=== PATIENT | female | born 1970 | race Caucasian/White ===

== ENCOUNTER 2024-08-19 00:46 | Inpatient (IN) | payer OTHER ==
[2024-08-19] MEDS ORDERED: IBUPROFEN 600 MG TAB PO PRN (01:02)
[2024-08-19] MEDS ORDERED: HALOPERIDOL LACTATE 5 MG/ML 1 ML VIAL IM PRN (01:02)
[2024-08-19] MEDS ORDERED: LORazepam 2 MG/ML INJ IM PRN (01:02)
[2024-08-19] MEDS ORDERED: MAGNESIUM HYDROXIDE 2,400 MG/30 ML CUP PO PRN (01:02)
[2024-08-19] MEDS ORDERED: ACETAMINOPHEN TAB 325 MG TAB PO PRN (01:02)
[2024-08-19] MEDS ORDERED: haloperidoL 5 MG TAB PO PRN (01:02)
[2024-08-19] MEDS ORDERED: LORazepam 1 MG TAB PO PRN (12:31)
[2024-08-19] MEDS: FOLIC ACID 1 MG TAB PO SCH (13:37)
[2024-08-19] MEDS: THIAMINE 100 MG TAB PO SCH (13:37)
[2024-08-19] MEDS: MULTIVITAMINS, THERA 1 EACH TAB PO SCH (13:37)
--- NOTE | 2024-08-20 03:12 | P.CONS ---
History of Present Illness - Reason for Consult Consult date: 08/20/24 - History of Present Illness The patient is a 53-year-old female who was transferred from [facility] with the patient had been admitted after an intentional overdose for depression and suicidal ideation. The patient was seen in the mental health unit. She reported that she had tried to commit suicide but overdosing on Wellbutrin, Xanax, BuSpar, and sertraline. She reports struggling with thoughts of depression along with her anxiety. She reports a chronic history of degenerative disc disease and reports smoking a pack of cigarettes daily. She also reports drinking a few beers every day with no hard liquor use. Denied any illicit substance use. Denied experiencing chest discomfort, shortness of breath, fever, chills, cough, nausea, vomiting, abdominal pain, diarrhea. Review of systems: Pertinent positives and negatives as discussed in HPI, a complete review of systems was performed and all other systems are negative. Physical examination: General: non toxic, no distress, appears at stated age, normal weight Derm: no unusual rashes/lesions, no unusual ecchymoses, warm, dry Head: atraumatic, normocephalic, symmetric Eyes: EOMI, no lid lag, anicteric sclera ENT: Nose and ears atraumatic, no thrush, no pharyngeal erythema Neck: trachea midline, supple Mouth: no lip lesion, mucus membranes moist Cardiovascular: S1S2 reg, no murmur, no edema Lungs: CTA bilateral, no rhonchi, no rales , no accessory muscle use Abdominal: soft, nontender to palpation, no guarding Ext: no gross muscle atrophy, no contractures, Neuro: No gross focal neuro deficits noted Psych: Alert, oriented, appropriate affect Assessment: Depression and suicidal ideation Tobacco abuse Plan: Defer management of depression and suicidal ideation to the primary psychiatry service Advised on importance of cessation from tobacco use Thank you for allowing us to participate in the care of this patient. We will follow peripherally. Do not hesitate to contact us with questions. Someone can be reached from the [facility] hospitalist group at all hours of the day at [phone]. Past Medical History Past Medical History: No Reported History, Musculoskeletal Disorder Additional Past Medical History / Comment(s): DDD History of Any Multi-Drug Resistant Organisms: None Reported Past Surgical History: Breast Surgery, Section, Cholecystectomy Additional Past Surgical History / Comment(s): D & C, removal of cyst and polyp on ovaries Past Anesthesia/Blood Transfusion Reactions: No Reported Reaction Past Psychological History: No Psychological Hx Reported Smoking Status: Current every day smoker Past Alcohol Use History: Daily Additional Past Alcohol Use History / Comment(s): 3-4 drinks/day Past Drug Use History: None Reported - Past Family History Mother Family Medical History: COPD Medications and Allergies Home Medications Medication Instructions Recorded Confirmed Type No Known Home Medications 08/19/24 08/19/24 History Allergies Allergy/AdvReac Type Severity Reaction Status Date / Time No Known Allergies Allergy Verified 08/19/24 12:07 Physical Exam Vitals: Vital Signs Temp Pulse Resp BP Pulse Ox 08/19/24 12:17 98.6 F 87 18 149/88 94 L Intake and Output 08/19/24 08/19/24 08/20/24 14:59 22:59 06:59 Other: Weight 66.224 kg
[2024-08-20 08:20] LABS: Basophils % (A) 0 %; Eosinophils # (A) 0.1 k/uL (0-0.7); Eosinophils % (A) 1 %; HCT 47.2 % (34.0-46.0); HGB 15.8 gm/dL (11.4-16.0); Lymphocytes # (A) 1.5 k/uL (1.0-4.8); Lymphocytes % (A) 17 %; MCH 33.7 pg (25.0-35.0); MCHC 33.5 g/dL (31.0-37.0); MCV 100.7 fL (80.0-100.0); Mean Platelet Volume 9.7; Monocytes # (A) 0.4 k/uL (0-1.0); Monocytes % (A) 5 %; Neutrophils # (A) 6.7 k/uL (1.3-7.7); Neutrophils % (A) 75 %; Platelet Count 230 k/uL (150-450); RBC 4.69 m/uL (3.80-5.40); RDW 12.9 % (11.5-15.5); WBC 8.9 k/uL (3.8-10.6)
[2024-08-20 08:35] LABS: ALT 39 U/L (4-34); African American GFR (CKD) >90 (>60 ml/min/1.73 sqM); Albumin 4.7 g/dL (3.5-5.0); Anion Gap 14 mmol/L; Blood Urea Nitrogen 11 mg/dL (7-17); Calcium 9.7 mg/dL (8.4-10.2); Carbon Dioxide 20 mmol/L (22-30); Chloride 103 mmol/L (98-107); Glucose 108 mg/dL (74-99); Non-African American GFR(CKD) 85 (>60 ml/min/1.73 sqM); Sodium 137 mmol/L (137-145); Total Bilirubin 1.1 mg/dL (0.2-1.3); Total Protein 7.5 g/dL (6.3-8.2)
[2024-08-20 08:39] LABS: AST 46 U/L (14-36); Alkaline Phosphatase 66 U/L (38-126); Potassium 4.2 mmol/L (3.5-5.1)
[2024-08-20] MEDS: LORazepam 1 MG TAB PO PRN (09:31)
[2024-08-20] MEDS: buPROPion XL 150 MG TAB.ER.24H PO SCH (09:31)
[2024-08-20] MEDS: FAMOTIDINE 20 MG TAB PO SCH (09:32)
--- NOTE | 2024-08-20 15:41 | P.HP ---
Psychiatric H&P - . H&P Date: 08/20/24 History & Physical: Allergies Allergy/AdvReac Type Severity Reaction Status Date / Time No Known Allergies Allergy Verified 08/19/24 12:07 Vital Signs Temp 98.6 F 08/19/24 12:17 Pulse 87 08/19/24 12:17 Resp 18 08/19/24 12:17 BP 149/88 08/19/24 12:17 Pulse Ox 94 L 08/19/24 12:17 FiO2 Intake & Output 08/18/24 08/19/24 08/19/24 18:59 06:59 18:59 Weight 65.8 kg 66.224 kg Dictation was produced using [employer] dictation software. Please excuse any grammatical, word or spelling errors. IDENTIFYING DATA: Patient is a 53 years old female with past psych history of depression, anxiety who was initially presented to [facility] and was transferred and admitted to the hospital after suicide attempt via overdose on her home psychiatric medication. HPI: Patient is a 53 years old female presented after suicidal attempt 08/17, noon, she took a bunch of her medication that she was previously on. He was not sure how much she took. She reported that she stopped all of her medication 2 months ago. She woke up with tremors unable to focus, has some ocular clonus lower extremity rigidity nausea, shortness of breath not feeling right. In the ED she was denying that she wanted to and denied any plan for suicide. She has been depressed, isolated, lost her car, has been having family stress with no permanent housing. Labs reviewed including ECG, sinus rhythm, with probable left atrial enlargement, HR 85, QTc 483. UDS positive for amphetamine and benzodiazepine. Alcohol level within normal limit, acetaminophen, salicylate within normal limit. CMP showed creatinine at 1.17 otherwise unremarkable, CBC showed WBC BC 16.3 otherwise unremarkable. Upon evaluation in the unit the patient states that she has been in a lot of stress lately including difficulty with her housing, she lost her job, and her car. States that she had some impulsive behavior when she felt overwhelmed by her financial stresses and she took a bunch of her medication, went to sleep and when she woke up she had some dizziness, did not feel well, she asked her neighbor to bring her to the ED. States that she was homeless prior to going to stay with a friend. Reported that she felt very bad and overdosed on her old medication. Reported that she has been down, sad, depressed, hopeless at times, reported her sleep to be on and off lately, she admitted to poor appetite. She denied any previous suicidal attempt in the past. She denied any current suicidal or homicidal thoughts or behavior and reported that she regretted what she did, and reported that she is glad she still alive. She denied any current manic or hypomanic symptoms, denied any flights of ideas, racing thoughts, increase in goal-directed behavior. She denied any auditory or visual hallucination, paranoia or delusion, she admitted to using alcohol on and off and reported that using few drinks every night, smoking 1 pack/day. She denied any other substance. PAST PSYCHIATRIC HISTORY: Inpatient hospitalization: Denied any previous hospitalization Outpatient: had a [facility] psychiatrist last seen in March Psychotropic medication: Buspirone 15 mg d, Wellbutrin XL 450 mg, Zoloft 100 mg, trazodone 150 mg (did not take for 2 months) Previous psychotropic medication: so many, could not remember Previous psychiatric diagnosis: depression, anxiety Suicidal attempts: pt denies PMH: as per ER note Past Medical History: No Reported History, Musculoskeletal Disorder Additional Past Medical History / Comment(s): DDD History of Any Multi-Drug Resistant Organisms: None Reported Past Surgical History: Breast Surgery, Section, Cholecystectomy Additional Past Surgical History / Comment(s): D & C, removal of cyst and polyp on ovaries Past Anesthesia/Blood Transfusion Reactions: No Reported Reaction Past Psychological History: No Psychological Hx Reported Smoking Status: Current every day smoker Past Alcohol Use History: Daily Additional Past Alcohol Use History / Comment(s): 3-4 drinks/day Past Drug Use History: None Reported ALLERGIES: as per EMR CHEMICAL DEPENDENCY HISTORY: as per HPI Tobacco: 1 pack/day for 35 years Alcohol: 3-4 beers per day, 28 standard drinks of alcohol, 28 cans of beer per week Cannabis: pt denies Illicit substance: pt denies Coffee: 3 cups per day FAMILY PSYCHIATRIC/SUBSTANCE USE HISTORY: pt reported that her daughter has bipolar disorder SOCIAL HISTORY: Patient was born in [place] and raised in [place]. Unemployed since last yr, used to work as a dental operating room assistant for 35 yrs. for 6 yrs, was for 20 yrs. Has 2 children 18yo male, and 30 yo female, has on and off connection with them, 1 grand child. Finished HS, dental operating room assistant certificate. Currently staying with a friend. MENTAL STATUS EXAM: General Appearance: Patient appears to be stated age is alert, directable, and attempts to cooperate. Patient appears to have fair hygiene and grooming. Behavior: Patient is seated without any agitated behavior. Speech: Patient's speech is fluent and nonpressured. Mood/Affect: Patient reports their mood is depressed, affect is congruent and constricted. Suicidality/Homicidality: Patient denies having any homicidal ideation intent or plan. Denies any suicidal ideations intent or plan Perceptions: Patient denies any visual hallucinations and denies any auditory hallucinations Though content/process: There is no evidence of any delusional thought content and thought process is linear and goal-directed. Memory and concentration: AOX3, grossly intact for the purposes of this session. Can spell "WORLD" backwards Judgment and insight: poor STRENGTHS/WEAKNESSES: strength is that patient is resilient. Weakness is that patient has poor judgment and is impulsive INTELLECT: [average] IMPRESSIONS: -Major depressive disorder, recurrent, severe with suicidal ideation -Generalized anxiety disorder -Alcohol use disorder PLAN: -Patient is admitted under voluntary status to MHU for stabilization of psychiatric symptoms and safety. -Medications : Start Wellbutrin XL 150 mg p.o. daily Start trazodone 50 mg p.o. at bedtime -Ativan and Haldol PRN for agitation/aggression -Started thiamine, MVM for etoh use -CIWA protocol with Ativan PRN for ETOH withdrawal.][scheduled Librium for alcohol withdrawal with plan to taper. -Patient was counselled on substance abuse and desired to cut back on use -Will offer patient subtance use rehab -Patient was informed of the risks, benefits and side effects of the medication and patient verbally consented to taking the medications. Patient signed med consent form and was placed in chart. -Internal Medicine consult to perform medical evaluation and physical. -NRT - nicotine patch -SW on board for discharge planning. Encourage patient to participate in groups to work on coping skills.
[2024-08-20 16:04] LABS: Chol/HDL Ratio 3.62 Ratio; LDL Cholesterol,Calculated 145.7 mg/dL (0.0-131.0)
[2024-08-20] MEDS: MAG HYDROX/AL HYDROX/SIMETH 355 ML BOTTLE PO PRN (21:33)
[2024-08-20] MEDS: traZODone HCL 50 MG TAB PO SCH (21:33)
[2024-08-21 11:16] VITALS: BMI 22.1
--- NOTE | 2024-08-21 15:26 | P.PN ---
Progress Note - Text Progress Note Date: 08/21/24 Dictation was produced using [employer] dictation software. Please excuse any grammatical, word or spelling errors. Interval history: She states that she has stomach issues for a week, and she has not being able to eat, she states that she was feeling nauseous, she states that she will try light food today. Mood is "fine". Reported that depression and anxiety are at the moderate side. She denied any current suicidal or homicidal thoughts or behaviors, denied any auditory or visual hallucination, she reported that she totally feels bad about what she did. She states that she still having some withdrawal symptoms and reported that may be related to her upset stomach however reported that she feels that she is getting better. She admitted to good sleep last night, she reported that she is getting along well with everyone in the unit, that she has been taking her medication, she denied any current side effects. She has no other concern at this time. MENTAL STATUS EXAM: General Appearance: Patient appears to be stated age is alert, directable, and attempts to cooperate. Patient appears to have fair hygiene and grooming. Behavior: Patient is seated without any agitated behavior. Speech: Patient's speech is fluent and nonpressured. Mood/Affect: Patient reports their mood is fine, affect is congruent and constricted. Suicidality/Homicidality: Patient denies having any homicidal ideation intent or plan. Denies any suicidal ideations intent or plan however he had suicidal attempt prior to this hospitalization via overdose on her home medication. Perceptions: Patient denies any visual hallucinations and denies any auditory hallucinations Though content/process: There is no evidence of any delusional thought content and thought process is linear and goal-directed. Memory and concentration: AOX3, grossly intact for the purposes of this session. Can spell "WORLD" backwards Judgment and insight: Improving IMPRESSIONS: -Major depressive disorder, recurrent, severe with suicidal ideation -Generalized anxiety disorder -Alcohol use disorder PLAN: -Patient is admitted under voluntary status to MHU for stabilization of psychiatric symptoms and safety. -Medications : Increase Wellbutrin XL to 300 mg p.o. daily Continue trazodone 50 mg p.o. at bedtime -Ativan and Haldol PRN for agitation/aggression -Started thiamine, MVM for etoh use -CIWA protocol with Ativan PRN for ETOH withdrawal.][scheduled Librium for alcohol withdrawal with plan to taper. -Patient was counselled on substance abuse and desired to cut back on use -Will offer patient subtance use rehab -Patient was informed of the risks, benefits and side effects of the medication and patient verbally consented to taking the medications. Patient signed med consent form and was placed in chart. -Internal Medicine consult to perform medical evaluation and physical. -NRT - nicotine patch -SW on board for discharge planning. Encourage patient to participate in groups to work on coping skills.
[2024-08-22] MEDS: buPROPion XL 300 MG TAB.ER.24H PO SCH (09:35)
[2024-08-22] MEDS: LORazepam 1 MG TAB PO PRN (09:36)
--- NOTE | 2024-08-22 11:32 | P.PN ---
Progress Note - Text Progress Note Date: 08/22/24 Dictation was produced using [employer] dictation software. Please excuse any grammatical, word or spelling errors. Interval history: Pt states that she still having stomach issues, states that she has not been able to eat well because of the upset stomach. She admitted to good sleep, reported increase in her depression and anxiety, since she does not know what she will do when she leave from here, she was emotional and cried multiple times during the interview. She denied any current suicidal or homicidal thoughts or behaviours or AVH, however she is guarded and minimizing her symptoms. Reported that she get along well with everyone in the unit. She states that she did not attended groups, pt was encouraged to do so. She states that she misses her kids, 18 yo son, and 30 yo daughter who is homeless with her boyfriend, and reported that they just got out of [facility]. States that looking back about her suicidal attempt she totally regret what she did, reported that she is just going through a lot. She states that she has been taking her meds, denied any side effects. She has no other concern at this time. MENTAL STATUS EXAM: General Appearance: Patient appears to be stated age is alert, directable, and attempts to cooperate. Patient appears to have fair hygiene and grooming. Behavior: Patient is seated without any agitated behavior. Speech: Patient's speech is fluent and nonpressured. Mood/Affect: Patient reports their mood is fine, affect is congruent and constricted. Suicidality/Homicidality: Patient denies having any homicidal ideation intent or plan. Denies any suicidal ideations intent or plan however he had suicidal attempt prior to this hospitalization via overdose on her home medication. Perceptions: Patient denies any visual hallucinations and denies any auditory hallucinations Though content/process: There is no evidence of any delusional thought content and thought process is linear and goal-directed. Memory and concentration: AOX3, grossly intact for the purposes of this session. Can spell "WORLD" backwards Judgment and insight: Improving IMPRESSIONS: Patient is a 53 years old female with past psych history of depression, anxiety and alcohol use who was initially presented to [facility] and was transferred and admitted to the hospital after suicide attempt via overdose on her home psychiatric medication. On assessment today the pt continue to endorse high depression and anxiety mainly related to her current situation. She was emotional, and cried during the interview. She denied any SI/HI or AVH. She has a limited insight into her mental illness, and is minimizing her symptoms. Will continue with her medications with a plan to start Buspar 5 mg po bid to address anxiety, may consider titrating the dose. Will continue with CIWA protocol for alcohol withdrawal. Given the recent suicidal attempt pt will continue to meet criteria for inpatient hospitalization to work over her medication titration and to stabilize her mood. Will continue to monitor the pt while in the unit and make medication adjustment as needed. -Major depressive disorder, recurrent, severe with suicidal ideation -Generalized anxiety disorder -Alcohol use disorder PLAN: -Patient is admitted under voluntary status to MHU for stabilization of psychiatric symptoms and safety. -Medications : Continue Wellbutrin XL 300 mg p.o. daily Continue trazodone 50 mg p.o. at bedtime Start Buspar 5 mg po bid -Ativan and Haldol PRN for agitation/aggression -Started thiamine, MVM for etoh use -CIWA protocol with Ativan PRN for ETOH withdrawal. -Patient was counselled on substance abuse and desired to cut back on use -Will offer patient subtance use rehab -Patient was informed of the risks, benefits and side effects of the medication and patient verbally consented to taking the medications. Patient signed med consent form and was placed in chart. -Internal Medicine consult to perform medical evaluation and physical. -NRT - nicotine patch -SW on board for discharge planning. Encourage patient to participate in groups to work on coping skills.
[2024-08-22] MEDS: busPIRone HCl 5 MG TAB PO SCH (12:45)
[2024-08-22] MEDS: BENZOCAINE/MENTHOL LOZENG 1 EACH LOZENGE MUCOUS MEM PRN (12:46)
[2024-08-23 09:05] VITALS: RESP 16
[2024-08-23] MEDS ORDERED: ONDANSETRON 4 MG TAB PO PRN (11:10)
--- NOTE | 2024-08-23 11:10 | P.PN ---
Progress Note - Text Progress Note Date: 08/23/24 Interval history: Patient was seen sitting in the lounge today and was directable and agreeable to speak with commercial real estate underwriter. She claims that she is doing a bit better today with regards to her mood and anxiety. States that she is trying to go to some groups. Did claim that she did have a bit of an upset stomach and mild nausea, we spoke about Zofran as needed but she is okay to try. Claims that she slept fairly last night, has a fair appetite. At this time patient denies any suicidal or homicidal ideations intent or plan. Denies any Auditory or visual hallucinations. Patient denies any side effects from the medications and has been compliant with meds. Mental status exam: General Appearance: Patient appears to be stated age is alert, directable, and cooperative. Behavior: No agitated behavior. Patient is calm and directable Speech: Patient's speech is fluent and nonpressured. Mood/Affect: Mood is improving mildly, mild anxiety, affect is congruent and constricted. Suicidality/Homicidality: Patient denies having any suicidal or homicidal ideation intent or plan. Perceptions: Patient denies any auditory or visual hallucinations. Though content/process: There is no evidence of any delusional thought content and thought process is linear and goal-directed. Memory and concentration: AOX3, grossly intact for the purposes of this session Judgment and insight: improving mildly Assessment/Plan: Continue with current diagnosis. Patient continues to meet criteria for inpatient psychiatric admission for symptom stabilization and safety. Patient will be maintained on current psychotropic medication regimen. Added Zofran as needed for nausea. Monitor for medication compliance and for any psychotropic medication side effects. Will continue to monitor ongoing response to treatment. Encouraged participation in milieu.
[2024-08-24 09:20] VITALS: TEMP 97.1
--- NOTE | 2024-08-24 12:02 | P.PN ---
Progress Note - Text Progress Note Date: 08/24/24 Interval history: Patient was seen sitting in the lounge today and was directable and agreeable to speak with machine sign writer. Patient has been interacting with others on the unit. She claims that she is doing a bit better today, claims that her mood and anxiety been improving. Claims that her upset stomach and nausea have improved since yesterday, states that she did not need to take any Zofran. Claims that she slept fairly last night, has a fair appetite. At this time patient denies any suicidal or homicidal ideations intent or plan. Denies any Auditory or visual hallucinations. Patient denies any side effects from the medications and has been compliant with meds. Mental status exam: General Appearance: Patient appears to be stated age is alert, directable, and cooperative. Behavior: No agitated behavior. Patient is calm and directable, fairly pleasant today, cooperative. Speech: Patient's speech is fluent and nonpressured. Mood/Affect: Mood is improving mildly, mild anxiety, affect is congruent and constricted. Suicidality/Homicidality: Patient denies having any suicidal or homicidal ideation intent or plan. Perceptions: Patient denies any auditory or visual hallucinations. Though content/process: There is no evidence of any delusional thought content and thought process is linear and goal-directed. Memory and concentration: AOX3, grossly intact for the purposes of this session Judgment and insight: improving mildly Assessment/Plan: Continue with current diagnosis. Patient continues to meet criteria for inpatient psychiatric admission for symptom stabilization and safety. Patient will be maintained on current psychotropic medication regimen. Monitor for medication compliance and for any psychotropic medication side effects. Will continue to monitor ongoing response to treatment. Encouraged participation in milieu.
[2024-08-25 11:48] VITALS: BP 118/84; PULSE 98
--- NOTE | 2024-08-25 14:03 | P.DS ---
Providers Date of admission: 08/19/24 11:12 Expected date of discharge: 08/25/24 Attending physician: Radha Sandoval MD Consults: 08/19/24 01:02 Consult Physician Routine Consulting Provider: Susan Fuchs Consult Reason/Comments: H&P and medical Do you want consulting provider notified?: Yes Primary care physician: Stated None - Discharge Diagnosis(es) (1) Major depressive disorder, recurrent Current Visit: Yes Status: Acute Priority: High (2) Generalized anxiety disorder Current Visit: Yes Status: Acute Priority: High (3) Alcohol use disorder Current Visit: Yes Status: Acute Priority: High Hospital Course: Admission HPI: Admission note was completed by Dr. Shepard "Patient is a 53 years old female presented after suicidal attempt 08/17, noon, she took a bunch of her medication that she was previously on. He was not sure how much she took. She reported that she stopped all of her medication 2 months ago. She woke up with tremors unable to focus, has some ocular clonus lower extremity rigidity nausea, shortness of breath not feeling right. In the ED she was denying that she wanted to and denied any plan for suicide. She has been depressed, isolated, lost her car, has been having family stress with no permanent housing. Labs reviewed including ECG, sinus rhythm, with probable left atrial enlargement, HR 85, QTc 483. UDS positive for amphetamine and benzodiazepine. Alcohol level within normal limit, acetaminophen, salicylate within normal limit. CMP showed creatinine at 1.17 otherwise unremarkable, CBC showed WBC BC 16.3 otherwise unremarkable. Upon evaluation in the unit the patient states that she has been in a lot of stress lately including difficulty with her housing, she lost her job, and her car. States that she had some impulsive behavior when she felt overwhelmed by her financial stresses and she took a bunch of her me dication, went to sleep and when she woke up she had some dizziness, did not feel well, she asked her neighbor to bring her to the ED. States that she was homeless prior to going to stay with a friend. Reported that she felt very bad and overdosed on her old medication. Reported that she has been down, sad, depressed, hopeless at times, reported her sleep to be on and off lately, she admitted to poor appetite. She denied any previous suicidal attempt in the past. She denied any current suicidal or homicidal thoughts or behavior and reported that she regretted what she did, and reported that she is glad she still alive. She denied any current manic or hypomanic symptoms, denied any flights of ideas, racing thoughts, increase in goal-directed behavior. She denied any auditory or visual hallucination, paranoia or delusion, she admitted to using alcohol on and off and reported that using few drinks every night, smoking 1 pack/day. She denied any other substance." Hospital course: Upon admission to the unit patient was directable and agreeable to commence treatment and signed adult voluntary form.. Patient got along well with other patients on the unit and followed unit protocol. Patient was compliant with the medications and denied any side effects throughout hospital course. Patient was started on Wellbutrin XL increased to 300 mg daily for depression/anxiety, trazodone 50 mg at bedtime for sleep, BuSpar 5 mg twice daily for anxiety in addition to multivitamins and thiamine/folic accident for alcohol use. Patient spoke of her stressors and engaged in therapy both group and individual. Patient was also seen by medical team for history and physical exam. Throughout the course of the hospitalization patient gradually improved with regards to mood, anxiety, sleep and returned back to their baseline level of functioning. On the day of discharge patient denied any suicidal or homicidal ideations intent or plan denied any auditory or visual hallucinations. The patient denied any access to guns or weapons. Patient denied any paranoia and did not endorse any delusions. Patient does have a significant history of substance abuse and was counseled on abstaining from all substances including alcohol and marijuana. Patient was offered however declined inpatient substance-abuse rehab. Patient was also counseled on the medications and need for regular compliance and was encouraged to follow-up with their outpatient appointment for mental health and also for primary care. Patient to be discharged today with [facility] follow-up. Mental status exam: General Appearance: Patient appears to be stated age is alert, pleasant, and cooperative. Patient is in no acute distress and has improved hygiene and grooming Behavior: Patient is calmly seated without any agitated behavior. Speech: Patient's speech is fluent and nonpressured. Mood/Affect: Patient reports their mood is "good", affect is congruent and euthymic. Suicidality/Homicidality: Patient denies having any suicidal or homicidal ideation intent or plan. Perceptions: Patient denies any auditory or visual hallucinations. Though content/process: There is no evidence of any delusional thought content and thought process is linear and goal-directed. Memory and concentration: AOX3, grossly intact for the purposes of this session. Can spell "WORLD" backwards correctly. Judgment and insight: Fair Impression: Major depressive disorder, recurrent, severe Generalized anxiety disorder Alcohol use disorder Plan: -Continue with discharge today as patient has improved and stabilized psychiatrically and is not currently an imminent threat to themself and/or others. Patient will remain at chronically elevated risk for harm to self and/or others due to their impulsivity and substance abuse. -Continue medications: Wellbutrin XL 300 mg daily, trazodone 50 mg at bedtime, BuSpar 5 mg twice daily -Patient was counseled on the need for medication compliance and appropriate follow-up at mental health and also primary care for medical issues. Patient verbalized understanding and agreed. -Social work to help coordinate patients discharge today. also to ensure safe home environment that guns/weapons are either removed from the home or locked away. Social work also to arrange for patients follow up appointments with [facility] for psychiatric care along with follow up with primary care provider. -Patient counseled on abstaining from recreational drugs and marijuana and alcohol. Was informed/educated on the adverse effects on their physical and mental health. Patient verbally agreed and understood. Patient was offered substance abuse treatment however declined at this time. -Patient was instructed to return to the hospital or seek immediate medical care if their psychiatric or medical symptoms do worsen or reoccur. Abnormal Labs 08/20/24 08/20/24 07:45 07:45 Hct 47.2 H MCV 100.7 H Carbon Dioxide 20 L Glucose 108 H AST 46 H ALT 39 H Cholesterol 237.00 H LDL Cholesterol, Calc 145.7 H HDL Cholesterol 65.50 H Vital Signs Temp 97.1 F L 08/24/24 09:00 Pulse 98 08/25/24 09:00 Resp 16 08/23/24 09:05 BP 118/84 08/25/24 09:00 Pulse Ox 100 08/25/24 09:00 FiO2 Intake & Output 08/24/24 08/25/24 08/25/24 18:59 06:59 18:59 Weight 65 kg Allergies Allergy/AdvReac Type Severity Reaction Status Date / Time No Known Allergies Allergy Verified 08/19/24 12:07 Patient Condition at Discharge: Stable Plan - Discharge Summary Discharge Rx Participant: No New Discharge Prescriptions: New busPIRone HCl [Buspar] 5 mg PO BID 30 Days #60 tab traZODone HCL [Desyrel] 50 mg PO HS 30 Days #30 tab buPROPion XL [Wellbutrin XL] 300 mg PO DAILY 30 Days #30 tab Famotidine [Pepcid] 40 mg PO DAILY tab Folic Acid 1 mg PO DAILY 30 Days #30 tab Multivitamins, Thera [Multivitamin (formulary)] 1 each PO DAILY 30 Days #30 tab Thiamine [Vitamin B-1] 100 mg PO DAILY 30 Days #30 tab Discharge Medication List Famotidine [Pepcid] 40 mg PO DAILY tab 08/25/24 [Rx] Folic Acid 1 mg PO DAILY 30 Days #30 tab 08/25/24 [Rx] Multivitamins, Thera [Multivitamin (formulary)] 1 each PO DAILY 30 Days #30 tab 08/25/24 [Rx] Thiamine [Vitamin B-1] 100 mg PO DAILY 30 Days #30 tab 08/25/24 [Rx] buPROPion XL [Wellbutrin XL] 300 mg PO DAILY 30 Days #30 tab 08/25/24 [Rx] busPIRone HCl [Buspar] 5 mg PO BID 30 Days #60 tab 08/25/24 [Rx] traZODone HCL [Desyrel] 50 mg PO HS 30 Days #30 tab 08/25/24 [Rx] Follow up Appointment(s)/Referral(s): [facility] [Outside] - 09/01/24 12:00 pm ([address] [place] [address] with [facility] [REFERRING] - 1 Week Patient Instructions/Handouts: Depression (DC), Generalized Anxiety Disorder (GEN), Abuse of Alcohol (DC) Activity/Diet/Wound Care/Special Instructions: [facility] Discharge Info Avoid the use of street drugs and alcohol. Take all medications as prescribed. When you are in need of refills on your medications, please contact your outpatient medical provider and/or outpatient psychiatrist. Please go to your scheduled outpatient appointments for aftercare treatment. If symptoms return or become worse, call the crisis line at or and/or visit the nearest emergency room for assistance. National Suicide and Crisis Lifeline - call or text 988 Discharge Disposition: HOME SELF-CARE
== END 2024-08-25 15:37 | disposition home or self-care (01) | DRG 885 ==
LOC: 3MHU 11:12
PROVIDERS: ADMIT Psychiatry & Neurology Psychiatry; ATTEND Psychiatry & Neurology Psychiatry
DX: F33.2 Major depressive disorder, recurrent severe without psychotic features (principal); F10.939 Alcohol use, unspecified with withdrawal, unspecified; F41.1 Generalized anxiety disorder; F17.210 Nicotine dependence, cigarettes, uncomplicated; Z56.0 Unemployment, unspecified; Z79.899 Other long term (current) drug therapy; Z91.51 Personal history of suicidal behavior; Z82.5 Family history of asthma and other chronic lower respiratory diseases
CPT/HCPCS: 80053; 80061; 83036; 84443; 85025

== ENCOUNTER 2024-11-17 19:09 | Emergency (ER) | payer OTHER ==
--- NOTE | 2024-11-17 19:26 | ED ---
Anxiety HPI - General Chief Complaint: Anxiety Stated Complaint: Anxiety,Weakness Time Seen by Provider: 11/17/24 19:24 Source: patient, RN notes reviewed Mode of arrival: ambulatory - History of Present Illness Initial Comments: 54-year-old female with history of anxiety and depression presenting for anxiety. States her anxiety has been very bad over the past couple of nights and she is feeling shaky and weak. She took herself off of her anxiety meds last May and restarted them today. The meds are bupropion, buspirone, and Zoloft. Denies suicidal or homicidal ideation. No other medical conditions. - Related Data Home Medications: Previous Rx's Medication Instructions Recorded Famotidine [Pepcid] 40 mg PO DAILY tab 08/25/24 Folic Acid 1 mg PO DAILY 30 Days #30 tab 08/25/24 Multivitamins, Thera [Multivitamin 1 each PO DAILY 30 Days #30 tab 08/25/24 (formulary)] Thiamine [Vitamin B-1] 100 mg PO DAILY 30 Days #30 tab 08/25/24 buPROPion XL [Wellbutrin XL] 300 mg PO DAILY 30 Days #30 tab 08/25/24 busPIRone HCl [Buspar] 5 mg PO BID 30 Days #60 tab 08/25/24 traZODone HCL [Desyrel] 50 mg PO HS 30 Days #30 tab 08/25/24 hydrOXYzine HCL [Atarax] 50 mg PO Q6H PRN #15 tab 11/17/24 Allergies/Adverse Reactions: Allergies Allergy/AdvReac Type Severity Reaction Status Date / Time No Known Allergies Allergy Verified 08/19/24 12:07 Review of Systems ROS Statement: Those systems with pertinent positive or pertinent negative responses have been documented in the HPI. ROS Other: All systems not noted in ROS Statement are negative. Past Medical History Past Medical History: No Reported History, Musculoskeletal Disorder Additional Past Medical History / Comment(s): DDD History of Any Multi-Drug Resistant Organisms: None Reported Past Surgical History: Breast Surgery, Section, Cholecystectomy Additional Past Surgical History / Comment(s): D & C, removal of cyst and polyp on ovaries Past Anesthesia/Blood Transfusion Reactions: No Reported Reaction Past Psychological History: No Psychological Hx Reported Smoking Status: Current every day smoker Past Alcohol Use History: Daily Past Drug Use History: None Reported - Past Family History Mother Family Medical History: COPD General Exam - General Exam Comments Initial Comments: Visual Physical Exam Vital signs reviewed General: Well-appearing, nontoxic, no acute distress. Head: Normocephalic, atraumatic Eyes: PERRLA, EOMI ENT: Airway patent Chest: Nonlabored breathing Skin: No visual rash, normal skin tone Neuro: Alert and oriented 3 Musculoskeletal: No gross abnormalities Limitations: no limitations General appearance: alert, in no apparent distress, anxious Head exam: Present: atraumatic, normocephalic, normal inspection Eye exam: Present: normal appearance, PERRL, EOMI. Absent: scleral icterus, conjunctival injection, periorbital swelling Neck exam: Present: normal inspection. Absent: tenderness, meningismus, lymphadenopathy Respiratory exam: Present: normal lung sounds bilaterally. Absent: respiratory distress, wheezes, rales, rhonchi, stridor Cardiovascular Exam: Present: regular rate, normal rhythm, normal heart sounds. Absent: systolic murmur, diastolic murmur, rubs, gallop, clicks Neurological exam: Present: alert, oriented X3, CN II-XII intact Psychiatric exam: Present: normal affect, anxious. Absent: homicidal ideation, suicidal ideation Skin exam: Present: warm, dry, intact, normal color. Absent: rash Course Vital Signs 11/17/24 11/17/24 19:12 21:49 Temperature 98.5 F 98.0 F Pulse Rate 95 81 Respiratory 16 16 Rate Blood Pressure 166/91 134/87 O2 Sat by Pulse 98 97 Oximetry Medical Decision Making - Medical Decision Making I completed the quick note portion of this chart signed Amanda Hampton PA-C Was pt. sent in by a medical professional or institution (RAMILA Anguiano, FLAME ANNEALING MACHINE OPERATOR, urgent care, hospital, or senior living...) When possible be specific @ -No Did you speak to anyone other than the patient for history (EMS, parent, family, police, friend...)? What history was obtained from this source @ -No Did you review nursing and triage notes (agree or disagree)? Why? @ -I reviewed and agree with nursing and triage notes Were old charts reviewed (outside hosp., previous admission, EMS record, old EKG, old radiological studies, urgent care reports/EKG's, senior living records)? Report findings @ -No old charts were reviewed Differential Diagnosis (chest pain, altered mental status, abdominal pain women, abdominal pain men, vaginal bleeding, weakness, fever, dyspnea, syncope, headache, dizziness, GI bleed, back pain, seizure, CVA, palpatations, mental health, musculoskeletal)? @ -Differential Mental Health Depression, anxiety, bipolar, psychosis, schizophrenia, borderline personality, situational depression, adjustment disorder, behavioral disorder, brain tumor, malingering, substance abuse, encephalopathy, medication reaction, dementia, hypothyroidism, degenerative neurologic disorder, lupus.... This is not meant to be all-inclusive list EKG interpreted by me (3pts min.). @ -As above X-rays interpreted by me (1pt min.). @ -None done CT interpreted by me (1pt min.). @ -None done U/S interpreted by me (1pt. min.). @ -None done What testing was considered but not performed or refused? (CT, X-rays, U/S, la bs)? Why? @ -None What meds were considered but not given or refused? Why? @ -None Did you discuss the management of the patient with other professionals (professionals i.e. , PA, FLAME ANNEALING MACHINE OPERATOR, lab, RT, psych nurse, social work specialist, boiler tender, teacher, animal services officer, caseworker)? Give summary @ -No Was smoking cessation discussed for >3mins.? @ -No Was critical care preformed (if so, how long)? @ -No Were there social determinants of health that impacted care today? How? (Homelessness, low income, unemployed, alcoholism, drug addiction, transportation, low edu. Level, literacy, decrease access to med. care, alf, rehab)? @ -No Was there de-escalation of care discussed even if they declined (Discuss DNR or withdrawal of care, Hospice)? DNR status @ -No What co-morbidities impacted this encounter? (DM, HTN, Smoking, COPD, CAD, Cancer, CVA, ARF, Chemo, Hep., AIDS, mental health diagnosis, sleep apnea, morbid obesity)? @ -None Was patient admitted / discharged? Hospital course, mention meds given and route, prescriptions, significant lab abnormalities, going to OR and other pertinent info. @ -Discharge. 54-year-old female with history of generalized anxiety disorder presenting for anxiety attack. States this feels similar to previous panic attacks. No chest pain or shortness of breath. Denies suicidal or homicidal ideation. Patient was provided with dose of Ativan. EKG reveals normal sinus rhythm with no ST changes. Lab work unremarkable. Upon reevaluation, patient reports improvement of symptoms however still feels mildly anxious. Patient was then provided with an additional dose of Ativan. Patient then reports she is feeling much better and feels stable for discharge. Appropriate return precautions and follow-up care discussed. Patient was provided with short outpatient prescription for hydroxyzine to take as needed for anxiety. Case was discussed with my ED attending Dr. Corley. Undiagnosed new problem with uncertain prognosis? @ -No Drug Therapy requiring intensive monitoring for toxicity (Heparin, Nitro, Insulin, Cardizem)? @ -No Were any procedures done? @ -No Diagnosis/symptom? @ -Anxiety Acute, or Chronic, or Acute on Chronic? @ -Acute Uncomplicated (without systemic symptoms) or Complicated (systemic symptoms)? @ -Uncomplicated Side effects of treatment? @ -No Exacerbation, Progression, or Severe Exacerbation? @ -No Poses a threat to life or bodily function? How? (Chest pain, USA, AR, pneumonia, PE, COPD, DKA, ARF, appy, cholecystitis, CVA, Diverticulitis, Homicidal, Suicidal, threat to staff... and all critical care pts) @ -No - Lab Data Result diagrams: 11/17/24 19:48 11/17/24 19:51 Lab Results 11/17/24 11/17/24 Range/Units 19:48 19:51 WBC 6.9 (3.8-10.6) k/uL RBC 4.68 (3.80-5.40) m/uL Hgb 15.0 (11.4-16.0) gm/dL Hct 46.0 (34.0-46.0) % MCV 98.2 (80.0-100.0) fL MCH 32.0 (25.0-35.0) pg MCHC 32.6 (31.0-37.0) g/dL RDW 13.8 (11.5-15.5) % Plt Count 260 (150-450) k/uL MPV 8.2 Neutrophils % 46 % Lymphocytes % 45 % Monocytes % 4 % Eosinophils % 2 % Basophils % 1 % Neutrophils # 3.2 (1.3-7.7) k/uL Lymphocytes # 3.1 (1.0-4.8) k/uL Monocytes # 0.3 (0-1.0) k/uL Eosinophils # 0.1 (0-0.7) k/uL Basophils # 0.0 (0-0.2) k/uL Sodium 138 (137-145) mmol/L Potassium 4.1 (3.5-5.1) mmol/L Chloride 106 (98-107) mmol/L Carbon Dioxide 19 L (22-30) mmol/L Anion Gap 13 mmol/L BUN 6 L (7-17) mg/dL Creatinine 0.73 (0.52-1.04) mg/dL Est GFR (CKD-EPI)AfAm >90 (>60 ml/min/1.73 sqM) Est GFR (CKD-EPI)NonAf >90 (>60 ml/min/1.73 sqM) Glucose 97 (74-99) mg/dL Calcium 9.8 (8.4-10.2) mg/dL Total Bilirubin 0.8 (0.2-1.3) mg/dL AST 31 (14-36) U/L ALT 26 (4-34) U/L Alkaline Phosphatase 80 (38-126) U/L Total Protein 8.0 (6.3-8.2) g/dL Albumin 4.9 (3.5-5.0) g/dL - EKG Data -: EKG Interpreted by Sc EKG Comments: EKG reveals normal sinus rhythm with no ST changes. Ventricular rate 93 bpm, MD interval 152, QRS duration 80, QT/QTc 358/409 Disposition Clinical Impression: Anxiety Disposition: HOME SELF-CARE Condition: Stable Instructions (If sedation given, give patient instructions): Generalized Anxiety Disorder (ED) Additional Instructions: Take hydroxyzine as needed for anxiety. Follow-up with your PCP/psychiatrist as discussed. Please return to the Emergency Department if symptoms worsen or any other concerns. Prescriptions: hydrOXYzine HCL [Atarax] 50 mg PO Q6H PRN #15 tab PRN Reason: Anxiety Is patient prescribed a controlled substance at d/c from ED?: No Referrals: Tonny England DO [Primary Care Provider] - 1-2 days Time of Disposition: 22:30
[2024-11-17] MEDS: LORazepam 2 MG/ML INJ IV STA ×2 (19:54→21:50)
[2024-11-17 20:01] LABS: Basophils % (A) 1 %; Eosinophils # (A) 0.1 k/uL (0-0.7); Eosinophils % (A) 2 %; Lymphocytes # (A) 3.1 k/uL (1.0-4.8); Lymphocytes % (A) 45 %; MCHC 32.6 g/dL (31.0-37.0); MCV 98.2 fL (80.0-100.0); Mean Platelet Volume 8.2; Monocytes # (A) 0.3 k/uL (0-1.0); Monocytes % (A) 4 %; Neutrophils # (A) 3.2 k/uL (1.3-7.7); Neutrophils % (A) 46 %; Platelet Count 260 k/uL (150-450); RBC 4.68 m/uL (3.80-5.40); RDW 13.8 % (11.5-15.5); WBC 6.9 k/uL (3.8-10.6)
[2024-11-17 20:12] LABS: ALT 26 U/L (4-34); AST 31 U/L (14-36); African American GFR (CKD) >90 (>60 ml/min/1.73 sqM); Albumin 4.9 g/dL (3.5-5.0); Alkaline Phosphatase 80 U/L (38-126); Anion Gap 13 mmol/L; Blood Urea Nitrogen 6 mg/dL (7-17); Calcium 9.8 mg/dL (8.4-10.2); Carbon Dioxide 19 mmol/L (22-30); Chloride 106 mmol/L (98-107); Glucose 97 mg/dL (74-99); Non-African American GFR(CKD) >90 (>60 ml/min/1.73 sqM); Potassium 4.1 mmol/L (3.5-5.1); Sodium 138 mmol/L (137-145); Total Bilirubin 0.8 mg/dL (0.2-1.3)
[2024-11-17 23:13] VITALS: BP 126/84; PULSE 87; RESP 18; TEMP 97.8
== END 2024-11-17 23:11 | disposition home or self-care (01) ==
LOC: EC 19:09
DX: F41.9 Anxiety disorder, unspecified (principal); F17.200 Nicotine dependence, unspecified, uncomplicated
CPT/HCPCS: 93005; 80053; 85025; 99283; 96374; 96376; J2060; 36415

== ENCOUNTER 2025-03-02 15:17 | Emergency (ER) | payer OTHER ==
--- NOTE | 2025-03-02 15:35 | ED ---
General Adult HPI - General Source: patient, RN notes reviewed Mode of arrival: ambulatory Limitations: no limitations <Deirdre Manrique - Last Filed: 03/02/25 15:34> - General Source: patient, RN notes reviewed, old records reviewed Mode of arrival: ambulatory Limitations: no limitations - History of Present Illness -: days(s) Radiation: non-radiation Severity scale (1-10): 2 Consistency: constant Improves with: none Worsens with: none Associated Symptoms: denies other symptoms Treatments Prior to Arrival: none <Tonny Corley - Last Filed: 03/02/25 20:00> - General Chief complaint: Nausea/Vomiting/Diarrhea Stated complaint: Shortness of breath Time Seen by Provider: 03/02/25 15:34 - History of Present Illness Initial comments: Quick note: 54-year-old female presented the ER for evaluation of numerous complaints. Patient states she recently was switched to 2 anxiety medications, Prozac and buspirone. She reports for the past 3 days she has been having shakiness, racing heart and shortness of breath. Patient states she frequently feels like there is a "grown man sitting on her chest". She states symptoms are worse at night. She also admits to nausea, vomiting and diarrhea. (Deirdre Manrique) This is a 54-year-old female to the ER for evaluation, patient has multiple issues today mainly anxiety chest pain and then found to have elevated blood pressure increase stress and anxiety in her life with multiple new medications started which she is sometimes taking sometimes not based on how she feels. Patient here in the ER with significant stress (Tonny Corley) - Related Data Previous Rx's Medication Instructions Recorded Famotidine [Pepcid] 40 mg PO DAILY tab 08/25/24 Folic Acid 1 mg PO DAILY 30 Days #30 tab 08/25/24 Multivitamins, Thera [Multivitamin 1 each PO DAILY 30 Days #30 tab 08/25/24 (formulary)] Thiamine [Vitamin B-1] 100 mg PO DAILY 30 Days #30 tab 08/25/24 buPROPion XL [Wellbutrin XL] 300 mg PO DAILY 30 Days #30 tab 08/25/24 busPIRone HCl [Buspar] 5 mg PO BID 30 Days #60 tab 08/25/24 traZODone HCL [Desyrel] 50 mg PO HS 30 Days #30 tab 08/25/24 hydrOXYzine HCL [Atarax] 50 mg PO Q6H PRN #15 tab 11/17/24 LORazepam [Ativan] 1 mg PO TID PRN 3 Days #9 tab 03/02/25 diazePAM [Valium] 5 mg PO Q8H PRN 3 Days #9 tab 03/02/25 lisinopriL [Zestril] 10 mg PO DAILY #90 tab 03/02/25 Allergies Allergy/AdvReac Type Severity Reaction Status Date / Time No Known Allergies Allergy Verified 03/02/25 15:22 Review of Systems ROS Other: All systems not noted in ROS Statement are negative. <Deirdre Manrique - Last Filed: 03/02/25 15:34> ROS Other: All systems not noted in ROS Statement are negative. <Tonny Corley - Last Filed: 03/02/25 20:00> ROS Statement: Those systems with pertinent positive or pertinent negative responses have been documented in the HPI. Past Medical History Past Medical History: No Reported History, Musculoskeletal Disorder Additional Past Medical History / Comment(s): DDD History of Any Multi-Drug Resistant Organisms: None Reported Past Surgical History: Breast Surgery, Section, Cholecystectomy Additional Past Surgical History / Comment(s): D & C, removal of cyst and polyp on ovaries Past Anesthesia/Blood Transfusion Reactions: No Reported Reaction Past Psychological History: No Psychological Hx Reported Smoking Status: Current every day smoker Past Alcohol Use History: Daily Past Drug Use History: None Reported - Past Family History Mother Family Medical History: COPD <Deirdre Manrique - Last Filed: 03/02/25 15:34> General Exam Limitations: no limitations <Deirdre Manrique - Last Filed: 03/02/25 15:34> General appearance: alert, in no apparent distress, anxious Head exam: Present: atraumatic, normocephalic, normal inspection Eye exam: Present: normal appearance, PERRL, EOMI. Absent: scleral icterus, conjunctival injection, periorbital swelling ENT exam: Present: normal exam, mucous membranes moist Neck exam: Present: normal inspection. Absent: tenderness, meningismus, lymphadenopathy Respiratory exam: Present: normal lung sounds bilaterally. Absent: respiratory distress, wheezes, rales, rhonchi, stridor Cardiovascular Exam: Present: regular rate, normal rhythm, normal heart sounds. Absent: systolic murmur, diastolic murmur, rubs, gallop, clicks GI/Abdominal exam: Present: soft, normal bowel sounds. Absent: distended, tenderness, guarding, rebound, rigid Extremities exam: Present: normal inspection, full ROM, normal capillary refill. Absent: tenderness, pedal edema, joint swelling, calf tenderness Back exam: Present: normal inspection Neurological exam: Present: alert, oriented X3, CN II-XII intact Psychiatric exam: Present: normal affect, normal mood Skin exam: Present: warm, dry, intact, normal color. Absent: rash <Tonny Corley - Last Filed: 03/02/25 20:00> - General Exam Comments Initial Comments: Visual Physical Exam Vital signs reviewed General: Well-appearing, nontoxic, no acute distress. Head: Normocephalic, atraumatic Eyes: PERRLA, EOMI ENT: Airway patent Chest: Nonlabored breathing Skin: No visual rash, normal skin tone Neuro: Alert and oriented 3 Musculoskeletal: No gross abnormalities (Deirdre Manrique) Course <Tonny Corley - Last Filed: 03/02/25 20:00> Vital Signs 03/02/25 03/02/25 03/02/25 15:19 18:21 18:35 Temperature 98.0 F Pulse Rate 91 68 70 Respiratory 16 18 18 Rate Blood Pressure 171/92 184/103 183/105 O2 Sat by Pulse 99 97 98 Oximetry 03/02/25 19:09 Temperature Pulse Rate 66 Respiratory 18 Rate Blood Pressure 158/99 O2 Sat by Pulse 97 Oximetry - Reevaluation(s) Reevaluation #1: 03/02/25 19:59 Medical record is reviewed (Tonny Corley) Reevaluation #2: 03/02/25 19:59 Patient symptoms improved here in the ER (Tonny Corley) Reevaluation #3: 03/02/25 19:59 Patient informed of results and questions answered (Tonny Corley) Reevaluation #4: Was pt. sent in by a medical professional or institution (, PA, DISSOLVER OPERATOR, urgent care, hospital, or penitentiary...) When possible be specific @ -no Did you speak to anyone other than the patient for history (EMS, parent, family, police, friend...)? What history was obtained from this source @ -no Did you review nursing and triage notes (agree or disagree)? Why? @ -agree Are old charts reviewed (outside hosp., previous admission, EMS record, old EKG, old radiological studies, urgent care reports/EKG's, penitentiary records)? Report findings @ -yes Differential Diagnosis (chest pain, altered mental status, abdominal pain women, abdominal pain men, vaginal bleeding, weakness, fever, dyspnea, syncope, headache, dizziness, GI bleed, back pain, seizure, CVA, palpatations, mental health, musculoskeletal)? @ -prior EKG interpreted by me (3pts min.). @ -yes X-rays interpreted by me (1pt min.). @ -yes negative for acute disease CT interpreted by me (1pt min.). @ -no U/S interpreted by me (1pt. min.). @ -no What testing was considered but not performed or refused? (CT, X-rays, U/S, labs)? Why? @ -none What meds were considered but not given or refused? Why? @ -none Did you discuss the management of the patient with other professionals (professionals i.e. , PA, DISSOLVER OPERATOR, lab, RT, psych nurse, social service agency director, resource paraprofessional, teacher, learning and development officer, correctional case records supervisor)? Give summary @ -no Was smoking cessation discussed for >3mins.? @ -no Was critical care preformed (if so, how long)? @ -no Were there social determinants of health that impacted care today? How? (Homelessness, low income, unemployed, alcoholism, drug addiction, transportation, low edu. Level, literacy, decrease access to med. care, penitentiary, rehab)? @ -none Was there de-escalation of care discussed even if they declined (Discuss DNR or withdrawal of care, Hospice)? DNR status @ -no What co-morbidities impacted this encounter? (DM, HTN, Smoking, COPD, CAD, Cancer, CVA, ARF, Chemo, Hep., AIDS, mental health diagnosis, sleep apnea, morbid obesity)? @ -none Was patient admitted / discharged? Hospital course, mention meds given and route, prescriptions, significant lab abnormalities, going to OR and other pertinent info. @ - Undiagnosed new problem with uncertain prognosis? @ -no Drug Therapy requiring intensive monitoring for toxicity (Heparin, Nitro, Insulin, Cardizem)? @ -no Were any procedures done? @ -no Diagnosis/symptom? @ - Acute, or Chronic, or Acute on Chronic? @ -Acute Uncomplicated (without systemic symptoms) or Complicated (systemic symptoms)? @ -Complicated Side effects of treatment? @ -no Exacerbation, Progression, or Severe Exacerbation? @ -exacerbation Poses a threat to life or bodily function? How? (Chest pain, [place], [place], pneumonia, PE, COPD, DKA, ARF, appy, cholecystitis, CVA, Diverticulitis, Homicidal, Suicidal, threat to staff... and all critical care pts) @ -yes (Tonny Corley) Medical Decision Making <Deirdre Manrique - Last Filed: 03/02/25 15:34> - Lab Data Result diagrams: 03/02/25 16:39 03/02/25 16:39 <Tonny Corley - Last Filed: 03/02/25 20:00> - Medical Decision Making I performed the quick note portion of this chart. Electronically signed by Deirdre Manrique PA-C (Deirdre Manrique) 54 female to the ER for evaluation patient [facility] for evaluation stress anxiety though symptoms are improved new onset hypertension will be started on blood pressure medications and can be discharged home (Tonny Corley) - Lab Data Lab Results 03/02/25 03/02/25 03/02/25 Range/Units 16:39 16:39 16:39 WBC 8.95 (4.50-10.00) 10*3/uL RBC 4.87 (4.10-5.20) 10*6/uL Hgb 16.3 H (12.0-15.0) g/dL Hct 45.1 (37.2-46.3) % MCV 92.6 (80.0-97.0) fL MCH 33.5 H (27.0-32.0) pg MCHC 36.1 (32.0-37.0) g/dL Plt Count 243 (140-440) 10*3/uL MPV 10.4 (9.5-12.2) fL Immature Gran % (Auto) 0.2 % Neutrophils % 51.0 % Lymphocytes % 40.6 % Monocytes % 6.6 % Eosinophils % 1.3 % Basophils % 0.3 % Immature Gran # 0.02 (0.00-0.04) 10*3/uL Neutrophils # 4.56 (1.80-7.70) 10*3/uL Lymphocytes # 3.63 (0.90-5.00) 10*3/uL Monocytes # 0.59 (0.20-1.00) 10*3/uL Eosinophils # 0.12 (0.04-0.35) 10*3/uL Basophils # 0.03 (0.00-0.10) 10*3/uL PT 9.4 L (10.0-12.5) sec INR 0.8 (<1.2) APTT 24.6 (22.0-30.0) sec Sodium 139 (137-145) mmol/L Potassium 4.4 (3.5-5.1) mmol/L Chloride 103 (98-107) mmol/L Carbon Dioxide 24 (22-30) mmol/L Anion Gap 12 mmol/L BUN 9 (7-17) mg/dL Creatinine 0.66 (0.52-1.04) mg/dL Est GFR (CKD-EPI)AfAm >90 (>60 ml/min/1.73 sqM) Est GFR (CKD-EPI)NonAf >90 (>60 ml/min/1.73 sqM) Glucose 91 (74-99) mg/dL Calcium 10.3 H (8.4-10.2) mg/dL Phosphorus (2.5-4.5) mg/dL Magnesium 2.1 (1.6-2.3) mg/dL Total Bilirubin 0.6 (0.2-1.3) mg/dL AST 41 H (14-36) U/L ALT 36 H (4-34) U/L Alkaline Phosphatase 98 (38-126) U/L Troponin I (0.000-0.034) ng/mL Total Protein 7.9 (6.3-8.2) g/dL Albumin 4.8 (3.5-5.0) g/dL Lipase (23-300) U/L 06/30/25 06/30/25 Range/Units 16:39 16:39 WBC (4.50-10.00) 10*3/uL RBC (4.10-5.20) 10*6/uL Hgb (12.0-15.0) g/dL Hct (37.2-46.3) % MCV (80.0-97.0) fL MCH (27.0-32.0) pg MCHC (32.0-37.0) g/dL Plt Count (140-440) 10*3/uL MPV (9.5-12.2) fL Immature Gran % (Auto) % Neutrophils % % Lymphocytes % % Monocytes % % Eosinophils % % Basophils % % Immature Gran # (0.00-0.04) 10*3/uL Neutrophils # (1.80-7.70) 10*3/uL Lymphocytes # (0.90-5.00) 10*3/uL Monocytes # (0.20-1.00) 10*3/uL Eosinophils # (0.04-0.35) 10*3/uL Basophils # (0.00-0.10) 10*3/uL PT (10.0-12.5) sec INR (<1.2) APTT (22.0-30.0) sec Sodium (137-145) mmol/L Potassium (3.5-5.1) mmol/L Chloride (98-107) mmol/L Carbon Dioxide (22-30) mmol/L Anion Gap mmol/L BUN (7-17) mg/dL Creatinine (0.52-1.04) mg/dL Est GFR (CKD-EPI)AfAm (>60 ml/min/1.73 sqM) Est GFR (CKD-EPI)NonAf (>60 ml/min/1.73 sqM) Glucose (74-99) mg/dL Calcium (8.4-10.2) mg/dL Phosphorus 3.4 (2.5-4.5) mg/dL Magnesium (1.6-2.3) mg/dL Total Bilirubin (0.2-1.3) mg/dL AST (14-36) U/L ALT (4-34) U/L Alkaline Phosphatase (38-126) U/L Troponin I <0.012 (0.000-0.034) ng/mL Total Protein (6.3-8.2) g/dL Albumin (3.5-5.0) g/dL Lipase 122 (23-300) U/L Disposition <Deirdre Manrique - Last Filed: 03/02/25 15:34> Is patient prescribed a controlled substance at d/c from ED?: No <Tonny Corley - Last Filed: 03/02/25 20:00> Clinical Impression: Generalized anxiety disorder, Chest pain, Hypertension Disposition: HOME SELF-CARE Condition: Good Instructions (If sedation given, give patient instructions): Hypertension (ED), Anxiety (ED) Prescriptions: LORazepam [Ativan] 1 mg PO TID PRN 3 Days #9 tab PRN Reason: Allergic Reaction diazePAM [Valium] 5 mg PO Q8H PRN 3 Days #9 tab PRN Reason: Anxiety lisinopriL [Zestril] 10 mg PO DAILY #90 tab Referrals: Tonny England DO [Primary Care Provider] - 1-2 days Reinier Baker MD [STAFF PHYSICIAN] - 1-2 days Perry Goldsmith MD [STAFF PHYSICIAN] - 1-2 days Eric Bates MD [RESIDENT] - 1-2 days
[2025-03-02 16:54] LABS: Basophils # (A) 0.03 10*3/uL (0.00-0.10); Basophils % (A) 0.3 %; Eosinophils # (A) 0.12 10*3/uL (0.04-0.35); Eosinophils % (A) 1.3 %; HCT 45.1 % (37.2-46.3); HGB 16.3 g/dL (12.0-15.0); Lymphocytes # (A) 3.63 10*3/uL (0.90-5.00); Lymphocytes % (A) 40.6 %; MCH 33.5 pg (27.0-32.0); MCHC 36.1 g/dL (32.0-37.0); MCV 92.6 fL (80.0-97.0); Mean Platelet Volume 10.4 fL (9.5-12.2); Monocytes # (A) 0.59 10*3/uL (0.20-1.00); Monocytes % (A) 6.6 %; Neutrophils # (A) 4.56 10*3/uL (1.80-7.70); Platelet Count 243 10*3/uL (140-440); RBC 4.87 10*6/uL (4.10-5.20); RDW 12.6 % (11.5-14.5); WBC 8.95 10*3/uL (4.50-10.00)
[2025-03-02 17:06] LABS: ALT 36 U/L (4-34); AST 41 U/L (14-36); African American GFR (CKD) >90 (>60 ml/min/1.73 sqM); Albumin 4.8 g/dL (3.5-5.0); Alkaline Phosphatase 98 U/L (38-126); Anion Gap 12 mmol/L; Blood Urea Nitrogen 9 mg/dL (7-17); Calcium 10.3 mg/dL (8.4-10.2); Carbon Dioxide 24 mmol/L (22-30); Chloride 103 mmol/L (98-107); Glucose 91 mg/dL (74-99); Magnesium 2.1 mg/dL (1.6-2.3); Non-African American GFR(CKD) >90 (>60 ml/min/1.73 sqM); Potassium 4.4 mmol/L (3.5-5.1); Sodium 139 mmol/L (137-145); Total Bilirubin 0.6 mg/dL (0.2-1.3); Total Protein 7.9 g/dL (6.3-8.2)
[2025-03-02 18:05] LABS: INR 0.8 (<1.2); Partial Thromboplastin Time 24.6 sec (22.0-30.0); Prothrombin Time 9.4 sec (10.0-12.5)
[2025-03-02 18:54] LABS: Phosphorus 3.4 mg/dL (2.5-4.5)
[2025-03-02] MEDS: ONDANSETRON 4 MG/2 ML VIAL IVP STA (19:06)
[2025-03-02] MEDS: SODIUM CHLORIDE 0.9% 1,000 ML IV ONE (19:06)
[2025-03-02] MEDS: LORazepam 1 MG/0.5 ML VIAL IV STA (19:07)
[2025-03-02] MEDS: diazePAM 5 MG TAB PO STA (19:41)
[2025-03-02] MEDS: LABETALOL 5 MG/ML VIAL MDV IVP STA (19:42)
[2025-03-02 20:44] VITALS: BP 115/85; PULSE 68; RESP 20; TEMP 98.7
== END 2025-03-02 20:44 | disposition home or self-care (01) ==
LOC: EC 15:17
DX: F41.1 Generalized anxiety disorder (principal); I10 Essential (primary) hypertension; R07.9 Chest pain, unspecified; F17.200 Nicotine dependence, unspecified, uncomplicated
CPT/HCPCS: 36415; 93005; 80053; 83690; 83735; 84100; 84484; 85025; 85610; 85730; 99284; 96374; 96375 ×2; 96361; J2060; J2405; J1920

== ENCOUNTER 2025-03-25 09:56 | Emergency (ER) | payer OTHER ==
--- NOTE | 2025-03-25 10:51 | ED ---
Recheck HPI - General Chief Complaint: Recheck/Abnormal Lab/Rx Stated Complaint: Shortness of breath Time Seen by Provider: 03/25/25 10:08 Source: patient, RN notes reviewed Mode of arrival: ambulatory Limitations: no limitations - History of Present Illness Initial Comments: This is a 54-year-old female with history of daily alcohol use presenting for anxiety/shortness of breath. Patient endorses having similar symptoms when seen in this ER on 03/02/2025. Patient endorses receiving buspirone and Prozac 6 weeks ago, prior to start of symptoms, having since had an increased dose of Prozac with ongoing racing thoughts, chest pressure and "panic attacks". Denies fever, chills, hemoptysis, abdominal pain, N/V/D. Onset/Timin -: week(s) Associated Symptoms: shortness of breath - Related Data Previous Rx's Medication Instructions Recorded Famotidine [Pepcid] 40 mg PO DAILY tab 08/25/24 Folic Acid 1 mg PO DAILY 30 Days #30 tab 08/25/24 Multivitamins, Thera [Multivitamin 1 each PO DAILY 30 Days #30 tab 08/25/24 (formulary)] Thiamine [Vitamin B-1] 100 mg PO DAILY 30 Days #30 tab 08/25/24 buPROPion XL [Wellbutrin XL] 300 mg PO DAILY 30 Days #30 tab 08/25/24 busPIRone HCl [Buspar] 5 mg PO BID 30 Days #60 tab 08/25/24 traZODone HCL [Desyrel] 50 mg PO HS 30 Days #30 tab 08/25/24 hydrOXYzine HCL [Atarax] 50 mg PO Q6H PRN #15 tab 11/17/24 LORazepam [Ativan] 1 mg PO TID PRN 3 Days #9 tab 03/02/25 diazePAM [Valium] 5 mg PO Q8H PRN 3 Days #9 tab 03/02/25 lisinopriL [Zestril] 10 mg PO DAILY #90 tab 03/02/25 Allergies Allergy/AdvReac Type Severity Reaction Status Date / Time No Known Allergies Allergy Verified 03/25/25 10:15 Review of Systems ROS Statement: Those systems with pertinent positive or pertinent negative responses have been documented in the HPI. ROS Other: All systems not noted in ROS Statement are negative. Past Medical History Past Medical History: No Reported History, Musculoskeletal Disorder Additional Past Medical History / Comment(s): DDD History of Any Multi-Drug Resistant Organisms: None Reported Past Surgical History: Breast Surgery, Section, Cholecystectomy Additional Past Surgical History / Comment(s): D & C, removal of cyst and polyp on ovaries Past Anesthesia/Blood Transfusion Reactions: No Reported Reaction Past Psychological History: No Psychological Hx Reported, Anxiety, Depression Smoking Status: Current every day smoker Past Alcohol Use History: Daily Past Drug Use History: None Reported - Past Family History Mother Family Medical History: COPD General Exam Limitations: no limitations General appearance: alert, anxious (Patient is tearful and appears anxious), in distress Head exam: Present: atraumatic, normocephalic, normal inspection Eye exam: Present: normal appearance, PERRL, EOMI. Absent: scleral icterus, conjunctival injection, periorbital swelling ENT exam: Present: normal exam, mucous membranes moist Neck exam: Present: normal inspection. Absent: tenderness, meningismus, lymphadenopathy Respiratory exam: Present: normal lung sounds bilaterally. Absent: respiratory distress, wheezes, rales, rhonchi, stridor, accessory muscle use, decreased breath sounds, prolonged expiratory Cardiovascular Exam: Present: regular rate, normal rhythm, normal heart sounds. Absent: systolic murmur, diastolic murmur, rubs, gallop, clicks GI/Abdominal exam: Present: soft, normal bowel sounds. Absent: distended, tenderness, guarding, rebound, rigid Extremities exam: Present: normal inspection, full ROM, normal capillary refill. Absent: tenderness, pedal edema, joint swelling, calf tenderness Back exam: Present: normal inspection Neurological exam: Present: alert, oriented X3, CN II-XII intact Psychiatric exam: Present: normal affect, normal mood Skin exam: Present: warm, dry, intact, normal color. Absent: rash Course Vital Signs 03/25/25 03/25/25 03/25/25 10:11 11:57 13:45 Temperature 98.2 F 98.9 F Pulse Rate 92 79 78 Respiratory 18 16 20 Rate Blood Pressure 153/94 132/96 128/89 O2 Sat by Pulse 98 96 98 Oximetry Medical Decision Making - Medical Decision Making Was pt. sent in by a medical professional or institution (, PA, GAMBRELER HELPER, urgent care, hospital, or fdc...) When possible be specific @ -No Did you speak to anyone other than the patient for history (EMS, parent, family, police, friend...)? What history was obtained from this source @ -No Did you review nursing and triage notes (agree or disagree)? Why? @ -I reviewed and agree with nursing and triage notes Were old charts reviewed (outside hosp., previous admission, EMS record, old EKG, old radiological studies, urgent care reports/EKG's, fdc records)? Report findings @ -No old charts were reviewed Differential Diagnosis (chest pain, altered mental status, abdominal pain women, abdominal pain men, vaginal bleeding, weakness, fever, dyspnea, syncope, headache, dizziness, GI bleed, back pain, seizure, CVA, palpatations, mental health, musculoskeletal)? @ -Differential Mental Health Depression, anxiety, bipolar, psychosis, schizophrenia, borderline personality, situational depression, adjustment disorder, behavioral disorder, brain tumor, malingering, substance abuse, encephalopathy, medication reaction, dementia, hypothyroidism, degenerative neurologic disorder, lupus.... This is not meant to be all-inclusive list EKG interpreted by me (3pts min.). @ -Sinus rhythm without ST deviation or T wave inversion. Ventricular rate 70 bpm, CHITO 138 ms, QRS 80 ms, QTc 420 ms. X-rays interpreted by me (1pt min.). @ -None done CT interpreted by me (1pt min.). @ -None done U/S interpreted by me (1pt. min.). @ -None done What testing was considered but not performed or refused? (CT, X-rays, U/S, labs)? Why? @ -None What meds were considered but not given or refused? Why? @ -None Did you discuss the management of the patient with other professionals (professionals i.e. , PA, GAMBRELER HELPER, lab, RT, psych nurse, 7th grade social studies teacher, top executive, teacher, horticultural technical officer, patient case coordinator)? Give summary @ -No Was smoking cessation discussed for >3mins.? @ -No Was critical care preformed (if so, how long)? @ -No Were there social determinants of health that impacted care today? How? (Homelessness, low income, unemployed, alcoholism, drug addiction, transportation, low edu. Level, literacy, decrease access to med. care, senior living, rehab)? @ -No Was there de-escalation of care discussed even if they declined (Discuss DNR or withdrawal of care, Hospice)? DNR status @ -No What co-morbidities impacted this encounter? (DM, HTN, Smoking, COPD, CAD, Cancer, CVA, ARF, Chemo, Hep., AIDS, mental health diagnosis, sleep apnea, morbid obesity)? @ -None Was patient admitted / discharged? Hospital course, mention meds given and route, prescriptions, significant lab abnormalities, going to OR and other pertinent info. @ -Patient initially provided IV normal saline and Ativan. Lab work notable for anion gap 14 and mildly elevated transaminase. Troponin and TSH WNL. Patient notes significant relief of anxiety and associated symptoms following Ativan administration. Advise follow-up with PCP/psychiatrist for ongoing management of acute and chronic anxiety. Discussed patient with Dr. Olivera. Undiagnosed new problem with uncertain prognosis? @ -No Drug Therapy requiring intensive monitoring for toxicity (Heparin, Nitro, Insulin, Cardizem)? @ -No Were any procedures done? @ -No Diagnosis/symptom? @ -Panic attack Acute, or Chronic, or Acute on Chronic? @ -Acute Uncomplicated (without systemic symptoms) or Complicated (systemic symptoms)? @ -Uncomplicated Side effects of treatment? @ -No Exacerbation, Progression, or Severe Exacerbation? @ -No Poses a threat to life or bodily function? How? (Chest pain, [place], [place], pneumonia, PE, COPD, DKA, ARF, appy, cholecystitis, CVA, Diverticulitis, Homicidal, Suicidal, threat to staff... and all critical care pts) @ -No - Lab Data Result diagrams: 03/25/25 11:04 03/25/25 11:04 Lab Results 03/25/25 03/25/25 03/25/25 Range/Units 11:04 11:04 12:36 WBC 8.44 (4.50-10.00) 10*3/uL RBC 4.52 (4.10-5.20) 10*6/uL Hgb 15.3 H (12.0-15.0) g/dL Hct 41.8 (37.2-46.3) % MCV 92.5 (80.0-97.0) fL MCH 33.8 H (27.0-32.0) pg MCHC 36.6 (32.0-37.0) g/dL Plt Count 237 (140-440) 10*3/uL MPV 10.0 (9.5-12.2) fL Immature Gran % (Auto) 0.6 % Neutrophils % 59.2 % Lymphocytes % 30.0 % Monocytes % 9.2 % Eosinophils % 0.5 % Basophils % 0.5 % Immature Gran # 0.05 H (0.00-0.04) 10*3/uL Neutrophils # 5.00 (1.80-7.70) 10*3/uL Lymphocytes # 2.53 (0.90-5.00) 10*3/uL Monocytes # 0.78 (0.20-1.00) 10*3/uL Eosinophils # 0.04 (0.04-0.35) 10*3/uL Basophils # 0.04 (0.00-0.10) 10*3/uL Sodium 137 (137-145) mmol/L Potassium 3.7 (3.5-5.1) mmol/L Chloride 103 (98-107) mmol/L Carbon Dioxide 20 L (22-30) mmol/L Anion Gap 14 mmol/L BUN 9 (7-17) mg/dL Creatinine 0.72 (0.52-1.04) mg/dL Est GFR (CKD-EPI)AfAm >90 (>60 ml/min/1.73 sqM) Est GFR (CKD-EPI)NonAf >90 (>60 ml/min/1.73 sqM) Glucose 102 H (74-99) mg/dL Calcium 9.8 (8.4-10.2) mg/dL Total Bilirubin 1.1 (0.2-1.3) mg/dL AST 37 H (14-36) U/L ALT 36 H (4-34) U/L Alkaline Phosphatase 86 (38-126) U/L Troponin I <0.012 (0.000-0.034) ng/mL Total Protein 7.5 (6.3-8.2) g/dL Albumin 4.7 (3.5-5.0) g/dL TSH 2.020 (0.465-4.680) mIU/L Disposition Clinical Impression: Anxiety attack Disposition: HOME SELF-CARE Condition: Good Instructions (If sedation given, give patient instructions): Anxiety (ED) Additional Instructions: Follow-up with PCP/psychiatry regarding ongoing management of anxiety. Is patient prescribed a controlled substance at d/c from ED?: No Referrals: Tonny England DO [Primary Care Provider] - 1-2 days Yissel Lopez MD [Medical Doctor] - 1-2 days Time of Disposition: 12:24
[2025-03-25] MEDS: SODIUM CHLORIDE 0.9% 1,000 ML IV STA (11:00)
[2025-03-25] MEDS: LORazepam 1 MG/0.5 ML VIAL IV STA (11:00)
[2025-03-25 11:15] LABS: Basophils # (A) 0.04 10*3/uL (0.00-0.10); Basophils % (A) 0.5 %; Eosinophils # (A) 0.04 10*3/uL (0.04-0.35); Eosinophils % (A) 0.5 %; HCT 41.8 % (37.2-46.3); HGB 15.3 g/dL (12.0-15.0); Lymphocytes # (A) 2.53 10*3/uL (0.90-5.00); Lymphocytes % (A) 30.0 %; MCH 33.8 pg (27.0-32.0); MCHC 36.6 g/dL (32.0-37.0); MCV 92.5 fL (80.0-97.0); Monocytes # (A) 0.78 10*3/uL (0.20-1.00); Monocytes % (A) 9.2 %; Neutrophils # (A) 5.00 10*3/uL (1.80-7.70); Neutrophils % (A) 59.2 %; Platelet Count 237 10*3/uL (140-440); RBC 4.52 10*6/uL (4.10-5.20); RDW 12.2 % (11.5-14.5); WBC 8.44 10*3/uL (4.50-10.00)
[2025-03-25 11:25] LABS: ALT 36 U/L (4-34); AST 37 U/L (14-36); African American GFR (CKD) >90 (>60 ml/min/1.73 sqM); Albumin 4.7 g/dL (3.5-5.0); Alkaline Phosphatase 86 U/L (38-126); Anion Gap 14 mmol/L; Blood Urea Nitrogen 9 mg/dL (7-17); Calcium 9.8 mg/dL (8.4-10.2); Carbon Dioxide 20 mmol/L (22-30); Chloride 103 mmol/L (98-107); Glucose 102 mg/dL (74-99); Non-African American GFR(CKD) >90 (>60 ml/min/1.73 sqM); Potassium 3.7 mmol/L (3.5-5.1); Sodium 137 mmol/L (137-145); Total Protein 7.5 g/dL (6.3-8.2)
[2025-03-25 13:46] VITALS: BP 128/89; PULSE 78; RESP 20; TEMP 98.9
== END 2025-03-25 13:46 | disposition home or self-care (01) ==
LOC: EC 09:56
DX: F41.0 Panic disorder [episodic paroxysmal anxiety] (principal); F17.200 Nicotine dependence, unspecified, uncomplicated
CPT/HCPCS: 36415; 80053; 84443; 84484; 85025; 99285; 96374; 96361; J2060